=== PATIENT | male | born 1945 | race Caucasian/White ===

== ENCOUNTER 2018-09-20 19:05 | Emergency (ER) | payer MEDICARE, OTHER ==
[~2018-09-20] VITALS: Ht 175.3 cm; Wt 101.3 kg
[~2018-09-20 19:05] MED LIST: ALLEGRA 180MG180 MG PO; ALLEGRA180 MG PO; ALLEGRA60 MG PO; ALTACE2.5 MG PO; AMBIEN 10MG10 MG PO; ASPIRIN 81M81 MG/TA2 PO; ASPIRIN E.C.325 MG PO; ATORVASTATIN; BENICAR; BENICAR40 MG PO; BUFFERED ASPIR325 M1 PO; CLOPIDOGREL; CLOPIDOGREL PO; CRESTOR 10MG10 MG PO; EPA1000 MG PO; LATANOPROST OP; LIPITOR 80MG80 MG PO; LUMIGAN EYE; LUMIGAN EYE GTTS OD; NITROSTAT0.4 MG/TAB SL; NORVASC 5MG5 MG/TAB PO; PREVACID30 MG PO; PRILOSEC 20MG20 MG PO; PROTONIX 40MG T40 MG PO; SINGULAIR; SINGULAIR10 MG PO; TOPROL XL50 MG PO; ZOLOFT 50MG50 MG PO; ZYRTEC5 MG PO
[2018-09-20 19:10] VITALS: TEMP 97
[2018-09-20 20:54] LABS: BASO # 0.1 (0.0-0.2); BASO % 0.5 % (0.0-2.0); EOS # 0.3 (0.0-0.7); EOS % 2.7 % (0-4.0); GRAN # 5.3 (1.4-6.5); GRAN % 53.4 % (42.2-75.2); HEMATOCRIT 42.4 % (42.0-52.0); HEMOGLOBIN 14.5 g/dl (13.5-18.0); LYMPH # 3.2 (1.2-3.4); LYMPH % 32.2 % (20.0-51.0); MEAN CELL VOLUME 91 fl (80.0-100.0); MEAN CORPUSCULAR HEMOGLOBIN 31 pg (27.0-31.0); MEAN CORPUSCULAR HGB CONC 34 g/dl (33.0-37.0); MEAN PLATELET VOLUME 9.4 fl (7.4-10.4); MONO # 1.1 (0.1-0.6); MONO % 10.9 % (1.7-9.3); PLATELET COUNT 233 K/mm3 (130-400); RED BLOOD COUNT 4.64 M/mm3 (4.20-5.60); REDCELL DISTRIBUTION WIDTH-CV 12.5 % (11.5-14.5)
[2018-09-20 21:03] LABS: ALANINE AMINOTRANSFERASE 36 U/L (21-72); ALBUMIN 4.5 gm/dL (3.5-5.0); ALKALINE PHOSPHATASE 74 U/L (50-136); ANION GAP 7 mmol/L (7-16); AST,SGOT 30 U/L (15-37); BILIRUBIN,TOTAL 0.4 mg/dL (0.0-1.0); BLOOD UREA NITROGEN 17 mg/dL (9-20); CALCIUM 9.6 mg/dL (8.4-10.2); CARBON DIOXIDE 27 mmol/L (22-30); CHLORIDE 106 mmol/L (98-107); CREATININE, serum 1.03 mg/dL (0.66-1.25); GLUCOSE 120 mg/dL (74-106); POTASSIUM 3.7 mmol/L (3.4-5.0); SODIUM 140 mmol/L (137-145); TOTAL PROTEIN 7.2 gm/dL (6.4-8.2)
[2018-09-20 21:14] LABS: TROPONIN-I < 0.012 ng/mL (0.000-0.034)
[2018-09-20] MEDS ORDERED: FLEXERIL 1010 MG/TAB PO (21:30)
[2018-09-20 21:38] VITALS: BP 126/82; PULSE 65
== END 2018-09-20 21:47 | disposition home or self-care (01) ==
LOC: COL.ER 19:05
PROVIDERS: Family Medicine
DX: M47.812 Spondylosis without myelopathy or radiculopathy, cervical region (principal); I25.10 Atherosclerotic heart disease of native coronary artery without angina pectoris; Z95.5 Presence of coronary angioplasty implant and graft; Z79.02 Long term (current) use of antithrombotics/antiplatelets; Z79.82 Long term (current) use of aspirin
CPT/HCPCS: J1170; J2550; J7030

== ENCOUNTER → 2018-10-09 | Outpatient (REF) ==
[~2018-10-09] MED LIST changes: +FLEXERIL 1010 MG/TAB PO
[2018-10-09 17:23] LABS: THYROID STIMULATING HORMONE 2.05 uIU/mL (0.465-4.680)
== END ==
LOC: ZLAB.WCH 16:29
PROVIDERS: Internal Medicine
DX: Z01.89 Encounter for other specified special examinations (principal)

== ENCOUNTER → 2018-10-27 | Outpatient (CLI) | payer MEDICARE, OTHER | LOC: COL.RAD 08:15 | DX: M48.02 Spinal stenosis, cervical region (principal) ==

== ENCOUNTER 2020-12-28 17:26 | Emergency (ER) | payer MEDICARE, OTHER ==
[~2020-12-28] VITALS: Ht 175.3 cm; Wt 95.9 kg
[~2020-12-28 17:26] MED LIST changes: +NORVASC 10MG10 MG PO; -NORVASC 5MG5 MG/TAB PO
[2020-12-28 17:27] VITALS: TEMP 97.5
[2020-12-28 17:47] LABS: BASO % 0.5 % (0.0-2.0); EOS # 0.1 (0.0-0.7); EOS % 1.2 % (0-4.0); GRAN # 5.5 (1.4-6.5); GRAN % 66.6 % (42.2-75.2); HEMATOCRIT 39.6 % (42.0-52.0); HEMOGLOBIN 13.9 g/dl (13.5-18.0); LYMPH # 1.7 (1.2-3.4); LYMPH % 21.1 % (20.0-51.0); MEAN CELL VOLUME 91 fl (80.0-100.0); MEAN CORPUSCULAR HEMOGLOBIN 32 pg (27.0-31.0); MEAN CORPUSCULAR HGB CONC 35 g/dl (33.0-37.0); MEAN PLATELET VOLUME 9.6 fl (7.4-10.4); MONO # 0.8 (0.1-0.6); MONO % 10.2 % (1.7-9.3); PLATELET COUNT 205 K/mm3 (130-400); RED BLOOD COUNT 4.35 M/mm3 (4.20-5.60); REDCELL DISTRIBUTION WIDTH-CV 12.3 % (11.5-14.5)
[2020-12-28 17:57] LABS: ALANINE AMINOTRANSFERASE 17 U/L (4-49); ALBUMIN 4.5 gm/dL (3.5-5.0); ALKALINE PHOSPHATASE 57 U/L (50-136); ANION GAP 12 mmol/L (7-16); AST,SGOT 34 U/L (15-37); BILIRUBIN,TOTAL 1.1 mg/dL (0.0-1.0); BLOOD UREA NITROGEN 26 mg/dL (9-20); CALCIUM 9.3 mg/dL (8.4-10.2); CARBON DIOXIDE 20 mmol/L (22-30); CHLORIDE 106 mmol/L (98-107); CREATINE KINASE 135 U/L (55-170); CREATININE, serum 1.44 (0.66-1.25); GLUCOSE 96 mg/dL (74-106); POTASSIUM 4.1 mmol/L (3.4-5.0); SODIUM 138 mmol/L (137-145); TOTAL PROTEIN 7.1 gm/dL (6.4-8.2)
[2020-12-28 18:09] LABS: TROPONIN-I < 0.012 ng/mL (0.000-0.035)
[2020-12-28 18:10] LABS: COLLECTION METHOD CLEAN CATCH
[2020-12-28 18:22] LABS: MUCOUS Present /lpf; PH 5 (5-8); SQUAMOUS EPITHELIAL 0-2 /hpf; URINE APPEARANCE Hazy; URINE BACTERIA Rare /hpf; URINE BILIRUBIN Negative (NEGATIVE); URINE BLOOD Negative (NEGATIVE); URINE COLOR Yellow; URINE GLUCOSE Negative (NEGATIVE); URINE KETONE Trace (NEGATIVE); URINE LEUKOCYTE ESTERASE Negative (NEGATIVE); URINE NITRATE Negative (NEGATIVE); URINE PROTEIN(semi-quant) Negative (NEGATIVE); URINE RBC 0-2 /hpf
[2020-12-28] MEDS ORDERED: XALATAN EYE DROPS OD (18:47)
[2020-12-28] MEDS ORDERED: PRAVACHOL 20MG20 MG PO (18:47)
[2020-12-28] MEDS ORDERED: COZAAR 50MG50 MG/TAB PO (18:47)
[2020-12-28] MEDS ORDERED: ZOLOFT 100MG100 MG PO (18:48)
[2020-12-28 18:49] VITALS: BP 115/64; PULSE 69
== END 2020-12-28 19:00 | disposition home or self-care (01) ==
LOC: COL.ER 17:26
PROVIDERS: Family Medicine
DX: E86.0 Dehydration (principal); E16.2 Hypoglycemia, unspecified; I10 Essential (primary) hypertension; F17.210 Nicotine dependence, cigarettes, uncomplicated; Z79.82 Long term (current) use of aspirin
CPT/HCPCS: J2405; J7120

== ENCOUNTER 2023-09-26 20:36 | Emergency (ER) | payer MEDICARE, OTHER ==
[~2023-09-26] VITALS: Ht 175.3 cm; Wt 90.0 kg
[2023-09-26 20:36] VITALS: TEMP 97.6
[~2023-09-26 20:36] MED LIST changes: +COZAAR 50MG50 MG/TAB PO; +PRAVACHOL 20MG20 MG PO; +XALATAN EYE DROPS OD; +ZOLOFT 100MG100 MG PO
[2023-09-26 21:19] LABS: BASO # 0.1 K/mm3 (0.0-0.2); BASO % 0.9 % (0.0-2.0); EOS # 0.4 K/mm3 (0.0-0.7); EOS % 5.7 % (0.0-4.0); GRAN # 2.8 K/mm3 (1.4-6.5); GRAN % 36.3 % (42.2-75.2); HEMATOCRIT 42.9 % (42.0-52.0); HEMOGLOBIN 14.5 g/dl (13.5-18.0); LYMPH # 3.6 K/mm3 (1.2-3.4); MEAN CELL VOLUME 94 fl (80.0-100.0); MEAN CORPUSCULAR HEMOGLOBIN 32 pg (27-31); MEAN CORPUSCULAR HGB CONC 34 g/dl (33.0-37.0); MEAN PLATELET VOLUME 9.7 fl (7.4-10.4); MONO # 0.7 K/mm3 (0.1-0.6); MONO % 9.6 % (1.7-9.3); PLATELET COUNT 210 K/mm3 (130-400); RED BLOOD COUNT 4.56 M/mm3 (4.20-5.60); REDCELL DISTRIBUTION WIDTH-CV 12.9 % (11.5-14.5)
[2023-09-26 21:21] LABS: PROTHROMBIN TIME 10.5 SECONDS (9.7-12.8)
[2023-09-26 21:30] LABS: ALBUMIN 4.2 gm/dL (3.4-4.8); BILIRUBIN,TOTAL 0.4 mg/dL (0.2-1.2); CREATININE, serum 1.32 mg/dL (0.72-1.25); POTASSIUM 3.9 mmol/L (3.5-4.5); TOTAL PROTEIN 7.6 gm/dL (6.2-8.1)
[2023-09-26 22:28] LABS: PARTIAL THROMBOPLASTIN TIME 36.5 SECONDS (26.0-37.0)
[2023-09-27 05:03] VITALS: BP 132/83; PULSE 73
== END 2023-09-27 05:03 | disposition home or self-care (01) ==
LOC: COL.ER 20:36
PROVIDERS: Emergency Medicine
DX: S00.31XA Abrasion of nose, initial encounter (principal); F10.129 Alcohol abuse with intoxication, unspecified; Y90.8 Blood alcohol level of 240 mg/100 ml or more; W18.30XA Fall on same level, unspecified, initial encounter; W22.8XXA Striking against or struck by other objects, initial encounter

== ENCOUNTER 2024-06-20 11:53 | Emergency (ER) | payer OTHER ==
[~2024-06-20] VITALS: Ht 172.7 cm; Wt 94.5 kg
[2024-06-20 12:01] VITALS: TEMP 97.8
[2024-06-20 13:11] VITALS: BP 123/79; PULSE 67
== END 2024-06-20 13:11 | disposition home or self-care (01) ==
LOC: COL.ER 11:53
DX: S61.411A Laceration without foreign body of right hand, initial encounter (principal); W27.0XXA Contact with workbench tool, initial encounter